=== PATIENT | female | born 1965 | race Caucasian/White ===

== ENCOUNTER → 2019-02-18 | Outpatient (CLI) | payer OTHER ==
[~2019-02-18] MED LIST: Antivert25 MG PO; CEPH500 PO; CYCL10 PO; DESV50 PO; FENO48 PO; FLUO20; HYDACE5 PO; HYDCHL25 PO; MIRT30 PO; PRESTIG PO; RANI150 PO; RXCEPH500 PO; SUCR1 PO; TRAM50 PO; UNKNOWN INHALER; [UNRECOGNIZED DRUG - OTHER]
== END | disposition home or self-care (01) ==
LOC: LAB SHORT 08:23 → PLD 08:23
DX: D48.5 Neoplasm of uncertain behavior of skin (principal); D18.09 Hemangioma of other sites
CPT/HCPCS: 88305

== ENCOUNTER → 2019-04-12 | Outpatient (CLI) | payer OTHER | END | disposition home or self-care (01) | LOC: LAB SHORT 18:12 → LAB EV 18:12 | DX: T14.8XXA Other injury of unspecified body region, initial encounter (principal) | CPT/HCPCS: 87070; 87075; 87205 ==

== ENCOUNTER 2019-06-29 08:51 | Day surgery (SDC) | payer OTHER ==
[~2019-06-29] VITALS: Ht 172.7 cm; Wt 84.7 kg
[~2019-06-29 08:51] MED LIST changes: +ALBU90OI INH; +Aspir 8181 MG PO; +Aspirin EC81 MG PO; +FENO145 PO; +LOSA25 PO; +OMEPRAZOLE20 MG PO; +THERA1 EACH PO
--- NOTE | 2019-06-29 09:44 | NUR ---
History, Chart, Medications and Allergies reviewed before start of procedure. Patient confirms NPO status and agrees with scheduled surgery. Lungs clear, but diminished to posterior bases. Ride home arranged by patient with medical transport.
== END 2019-06-29 11:55 | disposition home or self-care (01) ==
LOC: ORSCMMR 08:51 → ORD 10:00 → ORSCMMR 10:00
PROVIDERS: Internal Medicine Gastroenterology
PROC: 0DB58ZX Excision of Esophagus, Via Natural or Artificial Opening Endoscopic, Diagnostic (ICD-10-PCS; principal; 2019-06-29 10:00)
PROC: 0D758ZZ Dilation of Esophagus, Via Natural or Artificial Opening Endoscopic (ICD-10-PCS; principal; 2019-06-29 10:00)
PROC: 0DB68ZX Excision of Stomach, Via Natural or Artificial Opening Endoscopic, Diagnostic (ICD-10-PCS; principal; 2019-06-29 10:00)
PROC: 0DB48ZX Excision of Esophagogastric Junction, Via Natural or Artificial Opening Endoscopic, Diagnostic (ICD-10-PCS; principal; 2019-06-29 10:00)
DX: R13.14 Dysphagia, pharyngoesophageal phase (principal); J44.9 Chronic obstructive pulmonary disease, unspecified; I10 Essential (primary) hypertension; F32.9 Major depressive disorder, single episode, unspecified; K21.9 Gastro-esophageal reflux disease without esophagitis; F17.210 Nicotine dependence, cigarettes, uncomplicated; Z79.82 Long term (current) use of aspirin; Z79.899 Other long term (current) drug therapy
CPT/HCPCS: 88305; 88312; 88342; C1726; J2250; J2704; J7120

== ENCOUNTER 2020-03-10 09:14 | Day surgery (SDC) | payer OTHER ==
[~2020-03-10] VITALS: Ht 170.2 cm; Wt 84.9 kg
--- NOTE | 2020-03-10 09:54 | NUR ---
History, Chart, Medications and Allergies reviewed before start of procedure. Patient states colon prep results clear. Patient States Post-Procedure ride home has been arranged.
--- NOTE | 2020-03-10 10:23 | NUR ---
03/10/20 1023 Lizandro Montneegro PATIENT DETERMINED TO BE ASA APPROPRIATE FOR PROPOFOL SEDATION PRIOR TO START OF PROCEDURE BY DR. Dillon Block Placed. 3-LEAD EKG REVIEWED WITH PHYSICIAN PRIOR TO START OF PROCEDURE.Patient to ENDO 1
== END 2020-03-10 11:26 | disposition home or self-care (01) ==
LOC: ORSCMMR 09:14 → ORD 10:00 → ORSCMMR 11:26
PROVIDERS: Internal Medicine Gastroenterology
PROC: 0DBL8ZX Excision of Transverse Colon, Via Natural or Artificial Opening Endoscopic, Diagnostic (ICD-10-PCS; principal; 2020-03-10 10:00)
PROC: 0DBH8ZX Excision of Cecum, Via Natural or Artificial Opening Endoscopic, Diagnostic (ICD-10-PCS; principal; 2020-03-10 10:00)
PROC: 0DBP8ZX Excision of Rectum, Via Natural or Artificial Opening Endoscopic, Diagnostic (ICD-10-PCS; principal; 2020-03-10 10:00)
DX: Z12.11 Encounter for screening for malignant neoplasm of colon (principal); Z86.010 Personal history of colon polyps; D12.3 Benign neoplasm of transverse colon; D12.0 Benign neoplasm of cecum; K62.1 Rectal polyp; K21.9 Gastro-esophageal reflux disease without esophagitis; F32.9 Major depressive disorder, single episode, unspecified; I10 Essential (primary) hypertension; F17.210 Nicotine dependence, cigarettes, uncomplicated; Z79.82 Long term (current) use of aspirin; Z79.899 Other long term (current) drug therapy
CPT/HCPCS: 88305; J2704; J7120

== ENCOUNTER → 2021-01-02 | Outpatient (CLI) | payer OTHER | END | disposition home or self-care (01) | LOC: LAB 15:18 → LAB SHORT 15:18 | DX: D17.0 Benign lipomatous neoplasm of skin and subcutaneous tissue of head, face and neck (principal) | CPT/HCPCS: 88304; 88305 ==

== ENCOUNTER → 2021-02-27 | Outpatient (CLI) | payer OTHER | END | disposition home or self-care (01) | LOC: LAB 15:30 → LAB SHORT 15:30 | DX: B37.0 Candidal stomatitis (principal) | CPT/HCPCS: 87081 ==

== ENCOUNTER → 2021-06-05 | Outpatient (CLI) | payer OTHER ==
[~2021-06-05] MED LIST changes: +Crestor20 MG PO; +FENOFIBRATE40 MG PO; +MIRT15ST PO; +PEPCID40 MG PO
== END ==
LOC: LAB SHORT 18:13
DX: R14.0 Abdominal distension (gaseous) (principal); R73.9 Hyperglycemia, unspecified; R53.82 Chronic fatigue, unspecified; D39.8 Neoplasm of uncertain behavior of other specified female genital organs
CPT/HCPCS: 83036; 84443; 86304

== ENCOUNTER 2021-06-14 18:24 | Emergency (ER) | payer OTHER ==
[~2021-06-14] VITALS: Ht 172.7 cm; Wt 81.7 kg
[~2021-06-14 18:24] MED LIST changes: -Crestor20 MG PO; -FENOFIBRATE40 MG PO; -MIRT15ST PO; -PEPCID40 MG PO
[2021-06-14] MEDS ORDERED: LOSA25 PO (18:53)
[2021-06-14] MEDS ORDERED: PEPCID40 MG PO (18:53)
[2021-06-14] MEDS ORDERED: DESV50 PO (18:54)
[2021-06-14] MEDS ORDERED: Crestor20 MG PO (18:55)
[2021-06-14] MEDS ORDERED: FENOFIBRATE40 MG PO (18:56)
[2021-06-14] MEDS ORDERED: MIRT15ST PO (18:56)
== END 2021-06-14 20:37 ==
LOC: ER 18:24
DX: F10.129 Alcohol abuse with intoxication, unspecified (principal); S01.81XA Laceration without foreign body of other part of head, initial encounter; K21.9 Gastro-esophageal reflux disease without esophagitis; J44.9 Chronic obstructive pulmonary disease, unspecified; F17.200 Nicotine dependence, unspecified, uncomplicated; Z79.899 Other long term (current) drug therapy; Z79.82 Long term (current) use of aspirin; Z98.2 Presence of cerebrospinal fluid drainage device; V43.52XA Car driver injured in collision with other type car in traffic accident, initial encounter
CPT/HCPCS: 70450; 93005; 93010; 99284-25

== ENCOUNTER → 2022-02-20 | Outpatient (CLI) | payer OTHER | END | disposition home or self-care (01) | LOC: PLD 11:19 | DX: D48.5 Neoplasm of uncertain behavior of skin (principal) ==

== ENCOUNTER → 2022-08-01 | Outpatient (CLI) | payer OTHER ==
[~2022-08-01] MED LIST changes: +Crestor20 MG PO; +FENOFIBRATE40 MG PO; +MIRT15ST PO; +PEPCID40 MG PO
== END | disposition home or self-care (01) ==
LOC: LAB SHORT 17:58 → LAB 17:58
DX: E11.9 Type 2 diabetes mellitus without complications (principal)
CPT/HCPCS: 83036

== ENCOUNTER → 2022-11-07 | Outpatient (CLI) | payer OTHER | END | disposition home or self-care (01) | LOC: LAB 14:31 → LAB SHORT 14:31 | DX: L08.0 Pyoderma (principal) | CPT/HCPCS: 87070; 87205 ==

== ENCOUNTER → 2023-03-12 | Outpatient (CLI) | payer OTHER ==
[2023-03-13 01:20] LABS: Alanine Aminotransfer (ALT/SGP 27 U/L (12-78); Albumin, Blood 4.5 g/dL (3.4-5.0); Albumin/Globulin Ratio 1.4 (0.8-1.8); Alk Phos 50 U/L (50-136); Anion Gap 6 mmol/L (6-16); Aspartate Aminotrans (AST/SGOT 18 U/L (12-37); Bilirubin, Total 0.3 mg/dL (0.1-1.0); Blood Urea Nitrogen 27 mg/dL (8-24); Bun/Creatinine Ratio 36.5 (12.0-20.0); CHOL/HDL RATIO 3.8; CO2, Blood 27 mmol/L (21-32); Calcium, Blood 9.5 mg/dL (8.5-10.1); Chloride, Blood 107 mmol/L (98-108); Cholesterol 150 mg/dL (50-200); Creatinine, Blood 0.74 mg/dL (0.40-1.00); Globulin, Blood 3.2 g/dL (2.2-4.0); Glomerular Filtration Rate 94 (60-); Glucose, Blood 106 mg/dL (70-99); HDL Cholesterol 39 mg/dL (>39); LDL/HDL RATIO Unable to Calculate; Low Density Lipoprotein Chol Unable to Calculate mg/dL (0-110); Potassium, Blood 3.7 mmol/L (3.5-5.5); Sodium, Blood 140 mmol/L (136-145); Total Protein, Blood 7.7 g/dL (6.4-8.2); Triglycerides 489 mg/dL (30-160); Very Low Density Lipoprot Chol Unable to Calculate mg/dL (6-32)
[2023-03-13 01:32] LABS: LDL Direct Measurement 74 mg/dL (0-130)
== END | disposition home or self-care (01) ==
LOC: LAB 16:28 → LAB SHORT 16:28
PROVIDERS: Family Medicine
DX: E11.21 Type 2 diabetes mellitus with diabetic nephropathy (principal); E78.5 Hyperlipidemia, unspecified; Z83.49 Family history of other endocrine, nutritional and metabolic diseases
CPT/HCPCS: 80053; 80061; 83036; 83721; 84443

== ENCOUNTER → 2023-05-27 | Outpatient (CLI) | payer OTHER | LOC: PLD 15:15 → LAB SHORT 15:15 | DX: D48.5 Neoplasm of uncertain behavior of skin (principal) | CPT/HCPCS: 88305 ==

== ENCOUNTER 2023-09-23 10:28 | Day surgery (SDC) | payer OTHER ==
[~2023-09-23] VITALS: Ht 170.2 cm; Wt 80.5 kg
[~2023-09-23 10:28] MED LIST changes: +Lactated Ringer's 1,000 ML IV ONE
[2023-09-23] MEDS ORDERED: SERT100 PO (11:17)
[2023-09-23] MEDS ORDERED: MELATONIN5 M1 PO (11:18)
[2023-09-23] MEDS ORDERED: Lactated Ringer's 1,000 ML IV ONE (11:23)
[2023-09-23] MEDS ORDERED: Triamcinolone Inj Susp 40 MG / ML 1ML Vial ONE (11:42)
[2023-09-23] MEDS ORDERED: propofoL 20 ML IV ONE (11:58)
[2023-09-23] MEDS ORDERED: Rocuronium Bromide 10 MG/ML 5ML Injection IV ONE (11:59)
[2023-09-23] MEDS ORDERED: Ondansetron HCl 2 MG / ML 2ML Vial ONE (11:59)
[2023-09-23] MEDS ORDERED: Dexamethasone Sod Phos 10 MG/ML 1ML VIAL ONE (11:59)
[2023-09-23] MEDS ORDERED: Midazolam HCl 1MG / ML 2ML Vial ONE (12:00)
[2023-09-23] MEDS ORDERED: FentaNYL Citrate 50 MCG/ML 2 ML Injection ONE ×2 (12:00→12:52)
[2023-09-23] MEDS ORDERED: Sugammadex Sodium 200 MG/2ML SDV (100 MG/ML) ONE (12:08)
[2023-09-23] MEDS ORDERED: Lidocaine 1%-Epineph 1:200000 30 ML SDV INJ ONE (12:16)
[2023-09-23] MEDS ORDERED: EPINEPhrine HCl 1 MG/ML 1ML Amp XX ONE (12:16)
--- NOTE | 2023-09-23 12:20 | NUR ---
09/23/23 1220 Nighat Carvajal 30 MG EPI ON FIELD, USED FOR SOAKING PLEDGETS FOR NASAL PACKING
[2023-09-23] MEDS ORDERED: EPINEPhrine HCl 1 MG / ML 30ML Vial ONE (12:52)
--- NOTE | 2023-09-23 12:54 | NUR ---
09/23/23 1254 GIANNI MOYA 10 O2 VIA FACE TENT APPLIED O2 SAT ON RA DROPPED TO 90%. MUSTACHE DRESSING IN PLACE, MOUTH BREATHING. STATES PAIN 04/23
--- NOTE | 2023-09-23 13:29 | NUR ---
09/23/23 1329 GIANNI MOYA O2 SAT DROPPED TO 88% ON RA. FACE TENT BACK ON AT 2L. DEEP BREATHS, NOW O2 SAT IS 98%
[2023-09-23] MEDS ORDERED: OxyCODONE HCL 5 MG TAB ONE (13:51)
[2023-09-23 14:02] VITALS: BP 145/74
== END 2023-09-23 14:22 | disposition home or self-care (01) ==
LOC: ORSCSDS 10:28
PROVIDERS: Otolaryngology
PROC: 097F8ZZ Dilation of Right Eustachian Tube, Via Natural or Artificial Opening Endoscopic (ICD-10-PCS; principal; 2023-09-23 12:00)
PROC: 097G8ZZ Dilation of Left Eustachian Tube, Via Natural or Artificial Opening Endoscopic (ICD-10-PCS; principal; 2023-09-23 12:00)
DX: H90.6 Mixed conductive and sensorineural hearing loss, bilateral (principal); H69.93 Unspecified Eustachian tube disorder, bilateral; I10 Essential (primary) hypertension; J45.909 Unspecified asthma, uncomplicated; F17.210 Nicotine dependence, cigarettes, uncomplicated; K21.9 Gastro-esophageal reflux disease without esophagitis; F32.A Depression, unspecified; Z79.899 Other long term (current) drug therapy
CPT/HCPCS: 82947; A9270; J0171; J1100; J2250; J2405; J2704; J3010; J3301; J7120

== ENCOUNTER → 2024-10-30 | Outpatient (CLI) | payer OTHER ==
[~2024-10-30] MED LIST changes: -Lactated Ringer's 1,000 ML IV ONE; +MELATONIN5 M1 PO; +SERT100 PO
== END ==
LOC: LAB 13:05 → LAB SHORT 13:05
DX: E11.21 Type 2 diabetes mellitus with diabetic nephropathy (principal)
CPT/HCPCS: 82043